=== PATIENT | female | born 1960 | race Caucasian/White ===

== ENCOUNTER 2023-10-11 23:42 | Observation (INO) | payer BC ==
[2023-10-12] MEDS ORDERED: ASPIRIN 81 MG CHEWABLE TABLET ONE (00:03)
[2023-10-12 00:22] LABS: Absolute Lymphocytes (CBC) 3.1 K/uL (0.7-4.9); Hematocrit 39.8 % (36.0-45.0); Lymphocytes % 37.4 % (15.3-44.8); MCV 88.8 fL (80-100); MPV 10.1 fL (7.6-11.3); Platelets 238 thou/uL (152-406); RBC Red Blood Cell Count 4.48 M/uL (3.86-4.86)
[2023-10-12 00:26] LABS: Protime INR 1.02
[2023-10-12 00:41] LABS: Albumin 3.9 g/dL (3.4-5.0); Bilirubin Direct 0.2 mg/dL (0-0.2); Bilirubin Indirect, Calculated 1.2 mg/dL (0.2-0.8); Bilirubin Total 1.4 mg/dL (0.2-1.0); Magnesium 2.3 mg/dL (1.6-2.4); Potassium 3.7 mEq/L (3.5-5.1); Troponin High Sensitivity 8.3 pg/mL (<58.9)
[2023-10-12] MEDS ORDERED: NA CHLORIDE 0.9% 1,000 ML ONE (00:57)
--- NOTE | 2023-10-12 02:19 | EDPHYS ---
Physician Documentation [facility] Name: Shane Velasquez Age: 63 yrs Sex: Female : 1960 Arrival Date: 10/11/2023 Time: 23:42 Bed 2 Private MD: ED Physician Kaz Morin HPI: 10/11 23:51 This 53 yrs old Female presents to ER via Unassigned with complaints of Chest Pain. sb4 23:51 patient presents with pain in the center of her mid/upper back that radiates forward to sb4 her chest. she states it began when she was sitting watching tv. her boyfriend checked her blood pressure and found it to be elevated at 170/90. she denies any medical history besides hypercholesterolemia. denies any shortness of breath, diaphoresis, nausea, vomiting, highhandedness. Historical: - Allergies: 23:54 No Known Allergies; jb4 - PMHx: 23:54 Hypercholesterolemia; jb4 - PSHx: 23:54 Tubal ligation; eye; breast augmentation; jb4 - Immunization history:: Adult Immunizations not up to date. - Social history:: Smoking status: Patient denies any tobacco usage or history of. ROS: 23:51 Constitutional: Negative for fever, chills, and weight loss, sb4 23:51 Cardiovascular: Positive for chest pain, 23:51 Back: Positive for pain at rest, radiated pain, 23:51 All other systems are negative, Exam: 23:51 Constitutional: This is a well developed, well nourished patient who is awake, alert, sb4 and in no acute distress. Head/Face: Normocephalic, atraumatic. Eyes: Extra-ocular motions intact. Periorbital areas with no swelling, redness, or edema. ENT: Mucous membranes moist. Cardiovascular: Regular rate and rhythm with a normal S1 and S2. Respiratory: Lungs have equal breath sounds bilaterally, clear to auscultation and percussion. No rales, rhonchi or wheezes noted. No increased work of breathing, no retractions or nasal flaring. Abdomen/GI: Soft, non-tender, no distension. Skin: Warm, dry with normal turgor. Normal color with no rashes, no lesions, and no evidence of cellulitis. MS/ Extremity: Pulses equal, no cyanosis. Neurovascular intact. Full, normal range of motion. Neuro: Awake and alert, GCS 15, oriented to person, place, time, and situation. Motor strength 5/5 in all extremities. Sensory grossly intact. Vital Signs: 23:51 Pulse 70; Resp 16; Pulse Ox 96% on R/A; Weight 71.67 kg (R); Height 5 ft. 5 in. ; Pain jb4 01/14; 10/12 00:30 BP 146 / 79; Pulse 62; Resp 23 S; Pulse Ox 97% on R/A; jw7 01:30 BP 148 / 67; Pulse 63; Resp 16 S; Pulse Ox 99% on R/A; jw7 02:30 BP 157 / 92; Pulse 56; Resp 17 S; Pulse Ox 99% on R/A; jw7 10/11 23:51 Body Mass Index 26.29 (71.67 kg, 165.1 cm) jb4 10/11 23:51 Pain Scale: Adult jb4 MDM: 10/11 23:45 Patient medically screened. sb4 10/12 00:06 Differential diagnosis: abnormal EKG, acute myocardial infarction, anxiety, chest wall sb4 pain, aortic dissection, aortic aneurysm. The patient was given aspirin in the Emergency Department. 02:07 ED course: IMPRESSION: Atherosclerotic calcifications in the aortic arch, thoracic and sp4 abdominal aorta without aneurysmal dilatation or evidence of dissection. No evidence for significant central pulmonary embolus. Cholelithiasis. Mild fatty infiltration of the liver. Electronically signed by: Howie Walker MD 10/12/2023 01:44 AM. 02:16 HEART Score: History: Moderately Suspicious (1), ECG: Non specific repolarization sp4 disturbance / LBTB / PM (1), Age: > 45 and < 65 years (1), Risk Factors: 1 or 2 risk factors (1), Troponin: < or = 1 x Normal Limit (0), Total Score = 4. Data reviewed: vital signs, nurses notes, lab test result(s), EKG, radiologic studies, CT scan, plain films. ED course: EXAM DESCRIPTION: Chest Single View CLINICAL HISTORY: 63 years Female, CHEST PAIN TECHNIQUE: 1 view (Single frontal view of the chest) COMPARISON: None. FINDINGS: LINES AND TUBES: None. CARDIOVASCULAR STRUCTURES: Normal heart size. No pulmonary venous congestion. LUNGS: No confluent areas of acute consolidation. Partial obscuration of the lung parenchyma due to breast soft tissues. PLEURA: No layering pleural effusions. No pneumothorax. BONES: No acute osseous abnormality of the thorax. IMPRESSION: 1. No acute cardiopulmonary disease. 2. Partial obscuration of the lung parenchyma due to breast soft tissues. 3. If warranted, follow-up two-view chest x-ray may be more helpful. . 02:19 ED course: Patient has active chest pain right now with radiation to the back, CT sp4 negative for aortic dissection, patient warrants admission for further evaluation.. 10/11 23:51 Order name: Basic Metabolic Panel; Complete Time: 00:42 sb4 10/11 23:51 Order name: CBC with Diff; Complete Time: 00:28 sb4 10/11 23:51 Order name: LFT's; Complete Time: 00:42 sb4 10/11 23:51 Order name: Magnesium; Complete Time: 00:42 sb4 10/11 23:51 Order name: NT PRO-BNP; Complete Time: 00:42 sb4 10/11 23:51 Order name: PT-INR; Complete Time: 00:28 sb4 10/11 23:51 Order name: Troponin HS; Complete Time: 00:42 sb4 10/12 02:06 Order name: Troponin High Sensitivity; Complete Time: 04:57 sp4 10/12 02:44 Order name: Urinalysis w/ reflexes EDMS 10/12 02:44 Order name: Lipid Profile EDMS 10/12 02:44 Order name: Lipid Profile EDMS 10/12 02:44 Order name: Troponin High Sensitivity EDMS 02/ 02:44 Order name: Troponin High Sensitivity EDMS / 02:44 Order name: Troponin High Sensitivity EDMS / 02:44 Order name: Troponin High Sensitivity EDMS / 02:48 Order name: Lipid Profile; Complete Time: 04:57 EDMS 10/11 23:51 Order name: XRAY Chest (1 view) sb4 10/12 00:42 Order name: CT Aorta for Dissection sb4 10/12 02:48 Order name: Echo with Doppler EDMS 10/11 23:51 Order name: EKG; Complete Time: 23:51 sb4 10/11 23:51 Order name: Cardiac monitoring; Complete Time: 00:03 sb4 10/11 23:51 Order name: EKG - Nurse/Tech; Complete Time: 00:03 sb4 10/11 23:51 Order name: IV Saline Lock; Complete Time: 23:59 sb4 10/11 23:51 Order name: Labs collected and sent; Complete Time: 23:59 sb4 10/11 23:51 Order name: O2 Per Protocol; Complete Time: 23:59 sb4 10/11 23:51 Order name: O2 Sat Monitoring; Complete Time: 23:59 sb4 EC:05 Rate is 63 beats/min. Rhythm is regular, Normal Sinus Rhythm. OR interval is normal at sb4 126 msec. QRS interval is normal at 86 msec. QT interval is normal at [address]sec[address] No Q waves. ST Segment is depressed in leads II, III, aVF, <1mm. Clinical impression: NSR w/ Non-specific ST/T Changes. Interpreted by me. Reviewed by me. Administered Medications: 00:08 Drug: Aspirin PO Chewable Tablet 324 mg PO once; 81 mg tablets x 4 Route: PO; tm6 03:51 Follow up: Response: No adverse reaction jw7 01:04 Drug: NS 0.9% IV 1000 ml IV at 1 bolus Per protocol; 1000 mL bolus Route: IV; Rate: 1 jw7 bolus; Site: right antecubital; 03:51 Follow up: Response: No adverse reaction; IV Status: Completed infusion; IV Intake: jw7 1000ml 02:45 Drug: morphine IVP or IV 4 mg IVP once over 4 mins Route: IVP; Infused Over: 4 mins; tm6 Site: right antecubital; 03:51 Follow up: Response: No adverse reaction jw7 02:45 Drug: Ondansetron IVP 4 mg IVP once; over 2 minutes Route: IVP; Site: right antecubital;tm6 03:51 Follow up: Response: No adverse reaction jw7 02:45 Drug: Zolpidem PO 5 mg PO once Route: PO; tm6 03:51 Follow up: Response: No adverse reaction jw7 03:03 Drug: Enoxaparin Sub-Q 70 mg Sub-Q once Route: Sub-Q; Site: left lower abdomen; tm6 03:51 Follow up: Response: No adverse reaction jw7 Disposition: 02:16 Co-signature as Attending Physician, Kaz Morin MD I agree with the assessment sp4 and plan of care. I reviewed the patient's care provided by Advanced Practice Provider \T\ agree w/ the diagnosis \T\ care plan. I personally saw the pt \T\ performed a substantive portion of the visit, incldng all aspects of the (History/Exam/Medical Decision Making). 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 EDMS EDMS 11: 02:29 [facility] [[email or web address]] ER HOLD pm6 ja1 11:19 02:29 ERHOLD- pm6 ja1
--- NOTE | 2023-10-12 02:19 | ER ---
Nurse's Notes [facility] Name: Shane Velasquez Age: 63 yrs Sex: Female : 1960 Arrival Date: 10/11/2023 Time: 23:42 Bed 2 Private MD: Diagnosis: Unstable angina;Atherosclerotic heart disease of [place] coronary artery with unstable angina pectoris Presentation: 10/11 23:51 Chief complaint: Patient states: I am having mid upper back pain that radiates to my jb4 mid chest. The pain is a 5/10. Coronavirus screen: At this time, the client does not indicate any symptoms associated with coronavirus-19. Ebola Screen: No symptoms or risks identified at this time. Initial Sepsis Screen: Does the patient meet any 2 criteria? No. Patient's initial sepsis screen is negative. Does the patient have a suspected source of infection? No. Patient's initial sepsis screen is negative. Risk Assessment: Do you want to hurt yourself or someone else? Patient reports no desire to harm self or others. Onset of symptoms was October 11, 2023. Transition of care: patient was not received from another setting of care. 23:51 Method Of Arrival: Wheelchair jb4 23:51 Acuity: MADI 3 jb4 Historical: - Allergies: 23:54 No Known Allergies; jb4 - PMHx: 23:54 Hypercholesterolemia; jb4 - PSHx: 23:54 Tubal ligation; eye; breast augmentation; jb4 - Immunization history:: Adult Immunizations not up to date. - Social history:: Smoking status: Patient denies any tobacco usage or history of. Screenin:58 [facility] ED Fall Risk Assessment (Adult) History of falling in the last 3 months, jw7 including since admission No falls in past 3 months (0 pts) Score/Fall Risk Level 0 - 2 = Low Risk Oriented to surroundings, Maintained a safe environment, Educated pt \T\ family on fall prevention, incl call for assistance when getting out of bed. Abuse screen: Denies threats or abuse. Denies injuries from another. Nutritional screening: No deficits noted. Tuberculosis screening: No symptoms or risk factors identified. Assessment: 10/12 00:00 General: Appears in no apparent distress. comfortable, Behavior is calm, cooperative. jw7 Pain: Complains of pain in back Pain radiates to chest Pain currently is 5 out of 10 on a pain scale. Quality of pain is described as aching, dull, throbbing, Pain began suddenly, Is continuous. Neuro: Epstein Agitation-Sedation Scale (RASS): 0 - Alert and Calm Level of Consciousness is awake, alert, obeys commands, Oriented to person, place, time, situation. Cardiovascular: Heart tones S1 S2 present Capillary refill < 3 seconds Clubbing of nail beds is absent JVD is absent Patient's skin is warm and dry. Respiratory: Airway is patent Trachea midline Respiratory effort is even, unlabored, Respiratory pattern is regular, symmetrical. GI: Abdomen is flat, non-distended. : No deficits noted. No signs and/or symptoms were reported regarding the genitourinary system. EENT: No deficits noted. No signs and/or symptoms were reported regarding the EENT system. Derm: Skin is intact, is healthy with good turgor, Skin is dry, Skin is normal, Skin temperature is warm. Musculoskeletal: Circulation, motion, and sensation intact. Range of motion: intact in all extremities. 01:00 Reassessment: Patient appears in no apparent distress at this time. No changes from 7 previously documented assessment. Patient and/or family updated on plan of care and expected duration. Pain level reassessed. Patient is alert, oriented x 3, equal unlabored respirations, skin warm/dry/pink. 01:57 Reassessment: Patient appears in no apparent distress at this time. No changes from 7 previously documented assessment. Patient and/or family updated on plan of care and expected duration. Pain level reassessed. Patient is alert, oriented x 3, equal unlabored respirations, skin warm/dry/pink. 03:00 Reassessment: Patient appears in no apparent distress at this time. Patient and/or jw7 family updated on plan of care and expected duration. Pain level reassessed. Patient is alert, oriented x 3, equal unlabored respirations, skin warm/dry/pink. 03:00 General: Pt admitted to ER HOLD, See [facility] documentation . jw7 Vital Signs: 10/11 23:51 Pulse 70; Resp 16; Pulse Ox 96% on R/A; Weight 71.67 kg (R); Height 5 ft. 5 in. ; Pain jb4 01/14; 10/12 00:30 BP 146 / 79; Pulse 62; Resp 23 S; Pulse Ox 97% on R/A; jw7 01:30 BP 148 / 67; Pulse 63; Resp 16 S; Pulse Ox 99% on R/A; jw7 02:30 BP 157 / 92; Pulse 56; Resp 17 S; Pulse Ox 99% on R/A; jw7 10/11 23:51 Body Mass Index 26.29 (71.67 kg, 165.1 cm) jb4 10/11 23:51 Pain Scale: Adult jb4 ED Course: 10/11 23:45 Patient arrived in ED. sb4 23:45 Julianne Breaux PA-C is PHCP. sb4 23:45 Kaz Morin MD is Attending Physician. sb4 23:54 Triage completed. jb4 23:54 Arm band placed on right wrist. jb4 23:55 Inserted saline lock: 20 gauge in right antecubital area, using aseptic technique. ty Blood collected. 23:58 Patient has correct armband on for positive identification. Bed in low position. Call jw7 light in reach. Client placed on continuous cardiac and pulse oximetry monitoring. NIBP monitoring applied. 23:58 Patient maintains SpO2 saturation greater than 95% on room air. jw7 10/12 00:08 XRAY Chest (1 view) In Process Unspecified. EDMS 01:22 CT Aorta for Dissection In Process Unspecified. EDMS 02:18 Paddy Ta MD is Hospitalizing Provider. sp4 03:49 No provider procedures requiring assistance completed. Patient admitted, IV remains in jw7 place. 03:50 Provided Education on: need for admit. jw7 Administered Medications: 00:08 Drug: Aspirin PO Chewable Tablet 324 mg PO once; 81 mg tablets x 4 Route: PO; tm6 03:51 Follow up: Response: No adverse reaction jw7 01:04 Drug: NS 0.9% IV 1000 ml IV at 1 bolus Per protocol; 1000 mL bolus Route: IV; Rate: 1 jw7 bolus; Site: right antecubital; 03:51 Follow up: Response: No adverse reaction; IV Status: Completed infusion; IV Intake: jw7 1000ml 02:45 Drug: morphine IVP or IV 4 mg IVP once over 4 mins Route: IVP; Infused Over: 4 mins; tm6 Site: right antecubital; 03:51 Follow up: Response: No adverse reaction jw7 02:45 Drug: Ondansetron IVP 4 mg IVP once; over 2 minutes Route: IVP; Site: right antecubital;tm6 03:51 Follow up: Response: No adverse reaction jw7 02:45 Drug: Zolpidem PO 5 mg PO once Route: PO; tm6 03:51 Follow up: Response: No adverse reaction jw7 03:03 Drug: Enoxaparin Sub-Q 70 mg Sub-Q once Route: Sub-Q; Site: left lower abdomen; tm6 03:51 Follow up: Response: No adverse reaction jw7 Medication: 03:50 VIS not applicable for this client. jw7 Intake: 03:51 IV: 1000ml; Total: 1000ml. jw7 Outcome: 02:18 Decision to Hospitalize by Provider. sp4 03:49 Admitted to ER Hold. Please see [facility] for further documentation. jw7 03:49 Condition: stable 03:49 Instructed on the need for admit, Demonstrated understanding of instructions, 11:45 Patient left the ED. ap3 Signatures: Dispatcher [employer] EDMS Jasen Mcmahon RN RN jb4 Prokisch, Amanda, RN RN ap3 Marisabel Hayes RN RN jw7 Julianne Breaux, PAPro PAKaz Almonte MD MD sp4 Gerard Blackburn RN RN tm6 James Page Corrections: (The following items were deleted from the chart) 10/11 23:55 23:54 PMHx: None; 4 10/12 00:10/11 23:50 General: Appears in no apparent distress. comfortable, Behavior is calm, jw7 cooperative, 7 10/12 00:10/11 23:50 Pain: Complains of pain in back Pain radiates to chest Pain currently is 7 jw7 out of 10 on a pain scale. Quality of pain is described as aching, dull, throbbing, Pain began suddenly, Is continuous, jw7 10/12 99:10/11 23:50 Neuro: Epstein Agitation-Sedation Scale (RASS): 0 - Alert and Calm Level 7 of Consciousness is awake, alert, obeys commands, Oriented to person, place, time, situation, 7 10/12 99:10/11 23:50 Cardiovascular: Heart tones S1 S2 present Capillary refill < 3 seconds jw7 Clubbing of nail beds is absent JVD is absent Patient's skin is warm and dry. 7 10/12 99:10/11 23:50 Respiratory: Airway is patent Trachea midline Respiratory effort is even, jw7 unlabored, Respiratory pattern is regular, symmetrical, 7 10/12 99:10/11 23:50 GI: Abdomen is flat, non-distended, jw7 7 10/12 99:10/11 23:50 : No deficits noted. No signs and/or symptoms were reported regarding the jw7 genitourinary system. 7 10/12 99:10/11 23:50 EENT: No deficits noted. No signs and/or symptoms were reported regarding jw7 the EENT system. 10/12:10/11 23:50 Derm: Skin is intact, is healthy with good turgor, Skin is dry, Skin is jw7 normal, Skin temperature is warm 7 10/12 99:10/11 23:50 Musculoskeletal: Circulation, motion, and sensation intact. Range of jw7 motion: intact in all extremities, jw7 10/12 06:32 00:00 Pain: Complains of pain in back Pain radiates to chest Pain currently is 7 out of jw7 10 on a pain scale. Quality of pain is described as aching, dull, throbbing, Pain began suddenly, Is continuous, jw7
[2023-10-12] MEDS ORDERED: ONDANSETRON 4 MG/2 ML VIAL ONE (02:26)
[2023-10-12] MEDS ORDERED: MORPHINE 4 MG/ML SYR ONE (02:27)
[2023-10-12] MEDS ORDERED: ZOLPIDEM TARTRATE 5 MG TABLET ONE (02:27)
[2023-10-12] MEDS ORDERED: ENOXAPARIN 80 MG/0.8 ML SQ ONE (02:27)
[2023-10-12] MEDS ORDERED: ONDANSETRON 4 MG/2 ML VIAL IV PRN (02:39)
[2023-10-12] MEDS ORDERED: ACETAMINOPHEN 325 MG TABLET PO PRN (02:39)
--- NOTE | 2023-10-12 02:39 | P.HP ---
Certification for Inpatient Patient admitted to: Observation With expected LOS: <2 Midnights Practitioner: I am a practitioner with admitting privileges, knowledge of patient current condition, hospital course, and medical plan of care. Services: Services provided to patient in accordance with Admission requirements found in Title 42 Section 412.3 of the Code of Federal Regulations Patient History Date of Service: 10/12/23 Reason for admission: Chest paiN. History of Present Illness: 63-year-old female patient with no significant medical history except for hyperlipidemia who was evaluated in the emergency room for episode of chest pain. Pain is located in the mid chest region with radiation to the back between the shoulder blades. No headache, fever, chills, dizzy spells. No nausea, no vomiting. She does have occasions of palpitation but she has never been worked up for chest pain related issue. She reported a strong family history of heart attack and multiple numbers of her family which include her brother and her father. Both of them had massive cardiac attacks in their 60s. Initial troponin was significantly nonrevealing. She was admitted for inpatient care. CTA of the chest to rule out dissection was pending full report at the time of dictation. Allergies No Known Allergies Allergy (Unverified 10/12/23 04:00) Review of Systems General: Unremarkable Eyes: Unremarkable ENT: Unremarkable Respiratory: Unremarkable Cardiovascular: Chest Pain Gastrointestinal: Unremarkable Genitourinary: Unremarkable Musculoskeletal: Unremarkable Integumentary: Unremarkable Neurological: Unremarkable Lymphatics: Unremarkable Physical Examination - Physical Exam General: Alert, Oriented x3 HEENT: Atraumatic Neck: Supple Respiratory: Normal air movement Cardiovascular: Normal pulses, Regular rate/rhythm, Normal S1 S2 Gastrointestinal: Soft and benign Musculoskeletal: No swelling Neurological: Normal speech, Normal strength at 5/5 x4 extr - Studies Laboratory Data (last 24 hrs) 10/11/23 10/11/23 10/11/23 23:59 23:59 23:59 WBC 8.40 Hgb 13.7 Hct 39.8 Plt Count 238 PT 11.2 INR 1.02 Sodium 138 Potassium 3.7 BUN 18 Creatinine 1.21 H Glucose 120 H Magnesium 2.3 Total Bilirubin 1.4 H AST 11 L ALT 30 Alkaline Phosphatase 93 Assessment and Plan - Plan Chest pain: She has persistent pain and there is concern for unstable angina. Troponin trend has been nonrevealing. Continue statin therapy, aspirin and put on telemetry. Will obtain lipid panel to assess adequacy of therapy. Will follow trend of troponin. Will obtain echocardiogram to assess cardiac function. Cardiology consulted for management recommendation. Hyperlipidemia: Continue statin therapy. Prophylaxis: Lovenox for DVT prophylaxis. CODE STATUS: Full code. Disposition: We will treat and workup her chest pain and discharge her when she is deemed clinically stable. - Advance Directives Does patient have a Living Will: No Does patient have a Durable POA for Healthcare: No
[2023-10-12] MEDS ORDERED: MORPHINE 2 MG/ML SYR IV PRN (02:43)
[2023-10-12 03:41] VITALS: BMI 26.2
[2023-10-12 03:53] LABS: Troponin High Sensitivity 6.2 pg/mL (<58.9)
[2023-10-12 08:23] LABS: Specific Gravity > 1.030 (1.005-1.030); Urine Bilirubin NEGATIVE (Negative); Urine Blood Negative (Negative); Urine Clarity Clear (Clear); Urine Color Colorless (Yellow); Urine Glucose NEGATIVE (Negative); Urine Protein NEGATIVE (Negative); Urine Urobilinogen Normal (Normal)
[2023-10-12] MEDS ORDERED: INFLUENZA VACCINE (for 6+ mo) 0.5 ML DOSE IMVAC ONE (09:00)
[2023-10-12] MEDS: ENOXAPARIN 40 MG/0.4 ML SQ SCH (09:00)
[2023-10-12] MEDS: ASPIRIN 81 MG CHEWABLE TABLET PO SCH (09:00)
--- NOTE | 2023-10-12 12:39 | RAD REPORT ---
EXAM DESCRIPTION: CT - Angio Aorta For Dissection - 10/12/2023 7:01 am CLINICAL HISTORY: 63 years, Female, DISSECTION COMPARISON: None TECHNIQUE: Multiple transaxial tomograms of the abdominal aorta were performed utilizing 3 mm slice thickness at 3 mm interval reconstruction from the lung bases to the ischial tuberosities, before and after the administration of large bolus of IV contrast for complete opacification of the abdominal a joshua and iliac arteries. 2-D and 3-D multiplanar reformats, volume rendering technique and maximum intensity projection images were generated and reviewed. An individualized dose optimization technique, Automated Exposure Control, was utilized for the perfo rmed procedure. FINDINGS: Thoracic aorta/great vessels: Atherosclerotic calcifications in the aortic arch without aneurysmal dilatation or evidence of diss ection. There is a normal branching pattern of the great vessels. No evidence for significant stenosi s and/or occlusion within the proximal aspect. Aorta/iliac arteries: Atherosclerotic calcifications in the abdominal aorta without aneurysmal dilatation or evidence of di ssection. Atherosclerotic calcifications in bilateral common iliac arteries without significant steno sis and/or occlusion. The celiac trunk, superior mesenteric and inferior mesenteric artery demonstrate to be patent with no evidence for significant stenosis and/or occlusion. There are single bilateral renal arteries with no significant abnormalities. Chest: Lower neck/chest wall: Visualized thyroid gland and soft tissues are normal. No adenopathy. Lungs and airways: The lung parenchyma demonstrate bilateral apical pleural thickening. No evidence o f airspace or interstitial process. No significant pulmonary nodules and/or masses identified. No foc al areas of consolidation. Airways: The trachea mainstem bronchus demonstrate to be unremarkable. Pleural: There are no pleural effusion. No evidence for pneumothorax. Hemidiaphragms are normally pos itioned. Mediastinum and lymph nodes: No significant mediastinal and/or hilar lymphadenopathy. The axillary re gions demonstrate to be clear. Heart: Normal heart size. No pericardial effusion. No coronary arteries calcifications. Pulmonary arteries: The central pulmonary arteries demonstrate to be within normal limits. No evidenc e for significant central filling defect to suggest pulmonary embolus. Osseous structures and chest wall: The thoracic spine demonstrate to be within normal limits. No evid ence for compression deformities and/or significant skeletal lesions. Bilateral prepectoral breast im plants Abdomen and pelvis: Liver: The liver demonstrated presence of decreased attenuation corresponding to mild fatty infiltrat ion. Gallbladder: The gallbladder demonstrates presence of radiolucent density structures corresponding to cholesterol gallbladder calculi-cholelithiasis. No significant inflammatory changes and/or biliary d uct dilatation. Adrenal glands: The adrenal glands demonstrate to be normal. Pancreas: The pancreas demonstrate to be normal. Spleen: The spleen demonstrate to be within normal limits. Kidneys: The kidneys demonstrate normal uptake of contrast media. There is no evidence for nephroli thiasis and/or hydronephrosis. GI: Grossly the unopacified stomach, small bowel and large bowel demonstrate to be within normal limi ts. No evidence for bowel dilatation and/or free air. The appendix was not visualized. The left-sided colon demonstrate to be decompressed with no gross abnormalities. : The urinary bladder demonstrate to be suboptimal in distention. Genitalia: The uterus demonstrate to be within normal limits. There are normal adnexal structures. Retroperitoneum: There is no retroperitoneal lymphadenopathy. There is no evidence for ascites and/or abnormal fluid collections. Bones: The bony structures demonstrate to be within normal limits. Soft tissues: The rest of the soft tissue and bony structures are within normal limits. IMPRESSION: Atherosclerotic calcifications in the aortic arch, thoracic and abdominal aorta without aneurysmal dilatation or evidence of dissection. No evidence for significant central pulmonary embolus. Cholelithiasis. Mild fatty infiltration of the liver. Electronically signed by: Howie Walker MD 10/12/2023 01:44 AM MANAGER FINANCIAL Due to temporary technical issues with the PACS/Fluency reporting system, reports are being signed by the in house radiologist without review as a courtesy to ensure prompt reporting. The interpreting r adiologist is fully responsible for the content of the report.
--- NOTE | 2023-10-12 12:57 | RAD REPORT ---
EXAM DESCRIPTION: RAD - Chest Single View - 10/12/2023 12:07 am CLINICAL HISTORY: 63 years Female, CHEST PAIN TECHNIQUE: 1 view (Single frontal view of the chest) COMPARISON: None. FINDINGS: LINES AND TUBES: None. CARDIOVASCULAR STRUCTURES: Normal heart size. No pulmonary venous congestion. LUNGS: No confluent areas of acute consolidation. Partial obscuration of the lung parenchyma due to breast soft tissues. PLEURA: No layering pleural effusions. No pneumothorax. BONES: No acute osseous abnormality of the thorax. IMPRESSION: 1. No acute cardiopulmonary disease. 2. Partial obscuration of the lung parenchyma due to breast soft tissues. 3. If warranted, follow-up two-view chest x-ray may be more helpful. Electronically signed by: Ruben Bowman MD 10/12/2023 12:16 AM DISTRIBUTION ANALYST Due to temporary technical issues with the PACS/Fluency reporting system, reports are being signed by the in house radiologist without review as a courtesy to ensure prompt reporting. The interpreting r adiologist is fully responsible for the content of the report.
[2023-10-12] MEDS ORDERED: HEPA 1000U/500MLS 2,000 UNIT/1,000 ML BAG IV ONE (14:08)
[2023-10-12] MEDS ORDERED: LIDOCAINE 1% 20 ML MDV ONE (14:08)
[2023-10-12] MEDS ORDERED: HEPARIN 5000 UNIT/ML 1 ML VIAL ONE (14:09)
[2023-10-12] MEDS ORDERED: MIDAZOLAM HCL 2 MG/2 ML INJ ONE (14:09)
[2023-10-12] MEDS ORDERED: HEPARIN 10,000 UNIT/10 ML VIAL IV ONE (14:09)
[2023-10-12] MEDS ORDERED: VERAPAMIL HCL 10 MG/4 ML VIAL IV ONE (14:09)
[2023-10-12] MEDS ORDERED: FENTANYL CITR 100 MCG/2 ML ONE (14:09)
[2023-10-12] MEDS ORDERED: NA CHLORIDE 0.9% 500 ML ONE (14:09)
[2023-10-12] MEDS ORDERED: ATROPINE SULF 1 MG/10 ML SYR IV ONE (14:09)
--- NOTE | 2023-10-12 14:58 | EKG ---
Test Date: 2023-10-11 Test Time: 23:58:52 Grooving Machine Operator: BF MEASUREMENT RESULTS: Intervals: Rate: 63 MN: 126 QRSD: 86 QT: 406 QTc: 415 [place]: P: 30 MN: 126 QRS: 68 T: -84 INTERPRETIVE STATEMENTS: Normal sinus rhythm ST & T wave abnormality, consider inferolateral ischemia Abnormal ECG No previous ECG available for comparison Electronically Signed On 10-12-23 14:56:59 RETAIL SALES ADVISOR by Kendall Stearns
--- NOTE | 2023-10-12 17:11 | P.DS ---
Admission Date: 10/12/23 Discharge Date: 10/12/23 Disposition: ROUTINE DISCHARGE Discharge Condition: FAIR Reason for Admission: Chest pain. - Problems (1) Chest pain Current Visit: Yes Status: Acute (2) Hyperlipidemia Current Visit: Yes Status: Acute Brief History of Present Illness: 63-year-old female patient with history of hyperlipidemia who was evaluated in the emergency room for episode of chest pain. She reported occasional palpitation. She reported she had a stress test done several years ago which patient reported as unremarkable. She denied any headache, fever, chills, dizzy spells, nausea, no vomiting. She reported a strong family history of heart attack and multiple numbers of her family which include her brother and her father. Both of them had massive cardiac attacks in their 60s. Initial troponin was negative. CTA chest was negative for arterial dissection or pulmonary embolism. She was hospitalized for ACS rule out. Hospital Course: Patient was placed on observation on the medical floor. Troponin trended negative. She was seen and evaluated by cardiology Dr. Stearns who performed cardiac catheterization. Patient's LDL was moderately elevated. Noted she takes Crestor 5 mg daily at home. Crestor dose has been increased to 10 mg daily for target LDL of less than 70. Vital Signs/Physical Exam: Temp Pulse Resp BP Pulse Ox 97.4 F 71 17 115/51 L 95 10/12/23 12:00 10/12/23 12:00 10/12/23 12:00 10/12/23 12:00 10/12/23 12:00 General: Alert, In no apparent distress, Oriented x3 HEENT: Mucous membr. moist/pink Neck: JVD not distended Respiratory: Clear to auscultation bilaterally, Normal air movement Cardiovascular: No edema, Regular rate/rhythm, Normal S1 S2, No murmurs Gastrointestinal: Normal bowel sounds, Soft and benign, Non-distended, No tenderness Musculoskeletal: No swelling, No tenderness Integumentary: No rashes, No cyanosis Neurological: Normal speech, Normal strength at 5/5 x4 extr Lymphatics: No axilla or inguinal lymphadenopathy Laboratory Data at Discharge: WBC 8.40 thou/uL (4.3-10.9) 10/11/23 23:59 Hgb 13.7 g/dL (12.0-15.0) 10/11/23 23:59 Hct 39.8 % (36.0-45.0) 10/11/23 23:59 Plt Count 238 thou/uL (152-406) 10/11/23 23:59 PT 11.2 SECONDS (9.5-12.5) 10/11/23 23:59 INR 1.02 10/11/23 23:59 Sodium 138 mEq/L (136-145) 10/11/23 23:59 Potassium 3.7 mEq/L (3.5-5.1) 10/11/23 23:59 BUN 18 mg/dL (7-18) 10/11/23 23:59 Creatinine 1.21 mg/dL (0.55-1.02) H 10/11/23 23:59 Glucose 120 mg/dL (74-106) H 10/11/23 23:59 Magnesium 2.3 mg/dL (1.6-2.4) 10/11/23 23:59 Total Bilirubin 1.4 mg/dL (0.2-1.0) H 10/11/23 23:59 AST 11 U/L (15-37) L 10/11/23 23:59 ALT 30 U/L (13-56) 10/11/23 23:59 Alkaline Phosphatase 93 U/L (45-117) 10/11/23 23:59 Triglycerides Cancelled 10/12/23 05:00 Cholesterol Cancelled 10/12/23 05:00 HDL Cholesterol Cancelled 10/12/23 05:00 Cholesterol/HDL Ratio Cancelled 10/12/23 05:00 Home Medications: Aspirin Chewable [Aspirin Chewable*] 81 mg PO DAILY #30 tab.chew 10/12/23 Rosuvastatin [Crestor*] 2 tab PO BEDTIME #60 tab 10/12/23 New Medications: Aspirin Chewable [Aspirin Chewable*] 81 mg PO DAILY #30 tab.chew Rosuvastatin [Crestor*] 2 tab PO BEDTIME #60 tab Diet: AHA Activity: Ad claudia Followup: LUIS SMITH [Primary Care Provider] -
[2023-10-12 17:24] VITALS: O2SAT 96
[2023-10-12 21:05] VITALS: BP 132/64; TEMP 97
--- NOTE | 2023-10-13 00:29 | CON ---
Date of Consultation: 10/12/2023 Reason For Consultation: Chest pain. History Of Present Illness: This is a 63-year-old female with significant medical history of dyslipi demia, very strong family history of coronary artery disease. Father had his major heart attack at a ge of 60, as well as uncle and a brother as well. Comes in with chest pain, pressure-like and radiat es to the back, neck and upper extremities, lasted for about 30-45 minutes and then went away, and terry ppened multiple times, which grabbed her attention and presented to the emergency room. In the ER, c ardiac enzymes are negative and the patient is very concerned due to significant family history of se lewis premature coronary artery disease. Past Medical History: Dyslipidemia. Medications: Refer to reconciliation sheet for detailed list. Allergies: NO KNOWN DRUG ALLERGIES. Family History: There is history of premature coronary artery disease on the father's side and broth er as well. Social History: She does not smoke or drink. Does not use any drugs. Review of Systems: All systems were reviewed and were negative except what is mentioned in the HPI, which is chest pain. Physical Examination: Vital Signs: Reviewed. Head and Neck: Pupils are equal, reactive to light. Intact eye movements. No JVD. No cervical lym phadenopathy. Neck: Supple. Thyroid is not enlarged. Lungs: Clear to auscultation bilaterally. No rhonchi, rales, or crackles. No accessory muscle use. Heart: Regular rate and rhythm. No extra sounds. Abdomen: Soft, nontender. Bowel sounds positive. No organomegaly. No masses or hernia. No rigidi ty or rebound. Extremities: No edema, clubbing, cyanosis. Intact pulses. Skin: No rash or nodule. Neurologic: Alert, awake, oriented x3. No acute focal deficits appreciated. Lymph nodes: No cervical or axillary lymphadenopathy. Investigations: BUN 18, creatinine 1.2, and hemoglobin 16.7. Assessment/recommendation: 1.Chest pain, based on family history of coronary artery disease, new onset, it is concerning for un stable angina, especially with the history of dyslipidemia and significant premature family history o f coronary artery disease. I recommend coronary angiogram. We will plan on it this afternoon, to dinorah knight n.p.o. for now. 2.Dyslipidemia. LDL is borderline elevated. I would recommend to start her on Crestor 1 0 mg q.h.s. given the significant family history that she has. DILIP Voice ID: [id number] Report ID: [id number]
--- NOTE | 2023-10-13 00:42 | OP ---
Date of Procedure: 10/12/2023 Surgeon: TAZ NOLEN Procedures Performed: 1.Selective coronary angiogram. 2.Left heart catheterization. Indication: Unstable angina. Access: 1.Right radial artery 6-Zimbabwean closed with TR band. 2.Right femoral artery 6-Zimbabwean closed with 6-Zimbabwean Angio-Seal. Complications: None. Bleeding: Less than 20 mL. Anesthesia: Total sedation time was 30 minutes. Used fentanyl, Versed. Description Of Procedure: After risks, benefits, alternatives were explained, patient agreed to proc eed and signed informed consent. The patient was brought into cardiac catheterization laboratory, pr epped and draped in sterile fashion and then accessed right femoral artery using micropuncture kit, u ltrasound guidance, fluoroscopy. Initially, I accessed right radial artery using pediatric micropunc ture kit and placed 6-Zimbabwean slender sheath and could not get the wire due to severe spasm of the rad ial artery, so switched to the groin. Using micropuncture kit, ultrasound guidance, and fluoroscopy, I accessed right femoral artery, placed a 6-Zimbabwean Mondovi sheath and took 6-Zimbabwean JL4 catheter ov er J-wire into the aortic root, engaged left main and took standard views and then exchanged for a 6- [place]an JR4 catheter and across the aortic valve over the wire, measured the LVEDP. Pullback did not record any gradient. Then engaged the RCA, took standard views and then removed the catheter and the n the sheath and 6-Zimbabwean Angio-Seal was used for closure of the groin with good hemostasis and the r adial sheath was removed and TR band was placed with good hemostasis. Findings: 1.Left main is normal. 2.LAD; proximal 30%, mid 50% focal. Diagonal branches appear normal. The LAD distally tapers to be come very small. 3.Left circumflex; moderate size with luminal irregularities. 4.RCA; large and dominant mid 30%, rest of it is normal. 5.Elevated LVEDP between 15 and 20 mmHg. Conclusion: 1.Moderate coronary artery disease. 2.Elevated LVEDP. Recommendation: Cardiac risk factor modification. Baby aspirin 81 mg daily. High dose, high potenc y statin like atorvastatin 40 mg or rosuvastatin 20 mg q.h.s. Plan: Close followup as an outpatient. Probably, I will do a stress test on her in 1 year and also she will benefit from low-dose diuretics. She is symptomatic. The patient can be released and follo w up with me in the office in 1 week post discharge. SR/MODL Voice ID: [id number] Report ID: [id number]
--- NOTE | 2023-10-13 07:08 | ECHO ---
HEIGHT: 5 ft 5 in WEIGHT: 158 lb 0 oz DATE OF STUDY: 10/12/[address]: Paddy Ta MD 2-DIMENSIONAL: YES M.MODE: YES DOPPLER: YES COLOR FLOW: YES TDS: YES PORTABLE: YES DEFINITY: BUBBLE STUDY: DIAGNOSIS: CHEST PAIN CARDIAC HISTORY: CATHERIZATION: SURGERY: PROSTHETIC VALVE: PACEMAKER: MEASUREMENTS (cm) DIASTOLIC (NORMALS) SYSTOLIC (NORMALS) IVSd 0.9 (0.6-1.2) LA Diam 3.1 (1.9-4.0) LVEF 72% LVIDd 4.4 (3.5-5.7) LVIDs 2.6 (2.0-3.5) %FS 41% LVPWd 1.0 (0.6-1.2) Ao Diam 2.7 (2.0-3.7) 2 DIMENSIONAL ASSESSMENT: RIGHT ATRIUM: NORMAL LEFT ATRIUM: NORMAL RIGHT VENTRICLE: NORMAL LEFT VENTRICLE: NORMAL TRICUSPID VALVE: MILD TRICUSPID REGURGITATION MITRAL VALVE: NORMAL PULMONIC VALVE: NORMAL AORTIC VALVE: NORMAL PERICARDIAL EFFUSION: NONE AORTIC ROOT: NORMAL LEFT VENTRICULAR WALL MOTION: NORMAL DOPPLER/COLOR FLOW: SEE BELOW COMMENTS: 1. NORMAL LEFT VENTRICULAR EJECTION FRACTION 60-65% 2. NORMAL WALL MOTION 3. MILD TRICUSPID REGURGITATION TECHNOLOGIST: TONYA BROWN
== END 2023-10-12 19:50 | disposition home or self-care (01) ==
LOC: ER 23:42 → EDBD 23:42 → ERHOLD 10-12 02:39 → 4TH 10-12 11:35
PROVIDERS: ADMIT Internal Medicine Nephrology; ATTEND Internal Medicine
PROC: 4A023N7 Measurement of Cardiac Sampling and Pressure, Left Heart, Percutaneous Approach (ICD-10-PCS; principal; 2023-10-12)
PROC: B2111ZZ Fluoroscopy of Multiple Coronary Arteries using Low Osmolar Contrast (ICD-10-PCS; 2023-10-12)
DX: I25.110 Atherosclerotic heart disease of native coronary artery with unstable angina pectoris (principal); E78.5 Hyperlipidemia, unspecified; Z82.49 Family history of ischemic heart disease and other diseases of the circulatory system
CPT/HCPCS: 93005; 93306; 85025; 80048; 36415; 83735; 85610; 80061; 80076; 81003; 84484 ×4; 83880; 71275; 74175; 71045; 93458; 76937; Q9967; C1893; Q9966 ×2; C1760; J1644; J2001; J2250; J3010; J2405; G0378 ×4; J7040; J7030; C1769; 99152; 99153; J0461

== ENCOUNTER 2023-11-10 06:43 | Day surgery (SDC) | payer BC ==
[2023-11-05 13:27] LABS: Absolute Basophils 0.1 K/uL (0-0.5); Absolute Eosinophils 0.1 K/uL (0-0.5); Basophils % 0.7 % (0-1.3); Eosinophils % 1.7 % (0-4.4); Hematocrit 37.6 % (36.0-45.0); Hemoglobin 12.7 g/dL (12.0-15.0); Lymphocytes % 25.1 % (15.3-44.8); MCV 89.3 fL (80-100); Platelets 198 thou/uL (152-406); RBC Red Blood Cell Count 4.21 M/uL (3.86-4.86)
[2023-11-05 13:37] LABS: Protime INR 1.04
--- NOTE | 2023-11-09 16:06 | EKG ---
Test Date: 2023-11-05 Test Time: 14:09:43 Pasteurizing Machine Operator: EVAN MEASUREMENT RESULTS: Intervals: Rate: 64 NM: 128 QRSD: 88 QT: 338 QTc: 348 [place]: P: 53 NM: 128 QRS: 42 T: 211 INTERPRETIVE STATEMENTS: Normal sinus rhythm Possible Left atrial enlargement Nonspecific ST and T wave abnormality Abnormal ECG Compared to ECG 10/11/2023 23:58:52 Possible ischemia no longer present ST (T wave) deviation still present Electronically Signed On 11-09-23 16:04:41 VENDING MACHINE REFILLER by Kendall Stearns
[2023-11-10] MEDS ORDERED: NA CHLORIDE 0.9% 500 ML ONE (06:45)
[2023-11-10] MEDS ORDERED: FENTANYL CITR 100 MCG/2 ML ONE (06:58)
[2023-11-10] MEDS ORDERED: MIDAZOLAM HCL 2 MG/2 ML INJ ONE (06:58)
[2023-11-10] MEDS ORDERED: LIDOCAINE 1% 20 ML MDV ONE (06:58)
[2023-11-10] MEDS ORDERED: HEPA 1000U/500MLS 2,000 UNIT/1,000 ML BAG IV ONE (06:59)
[2023-11-10 10:25] VITALS: O2SAT 98
[2023-11-10 10:50] VITALS: BP 137/76
== END 2023-11-10 10:35 | disposition home or self-care (01) ==
LOC: CCL 06:43
PROVIDERS: ATTEND Internal Medicine
DX: I65.23 Occlusion and stenosis of bilateral carotid arteries (principal); I25.10 Atherosclerotic heart disease of native coronary artery without angina pectoris; E78.5 Hyperlipidemia, unspecified; R03.0 Elevated blood-pressure reading, without diagnosis of hypertension; Z87.891 Personal history of nicotine dependence; Z79.899 Other long term (current) drug therapy
CPT/HCPCS: 93005; 85025; 80048; 36415; 83721; 85610; 85730; 36222; 76937; C1893; J2001; J2250; J3010; J7040; 99152; 99153

== ENCOUNTER 2023-12-03 04:22 | Emergency (ER) | payer BC ==
--- OUTSIDE RECORDS SUMMARY | 2023-12-03 04:25 | XMS REPORT | Continuity of Care Document ---
Author Name Unknown Address [address] [facility] [address] [place] [address] [facility] thconnect Address [address] [facility] [address] [place] [address] Care Team Providers Care Investment Strategist Name Role Phone Jeannie Burnette Attending Clinician Jeannie Barraza Admitting Clinician Herminia e Payers Payer Name Policy Type Policy Number Effective Date Expirati on Date Source Allergies, Adverse Reactions, Alerts Allergy Name Allergy Type Status Severity Reaction(s) Onset Date Inactive Date Treating Clinician Comments Source No Known Allergie s DA Active U 11-26 00:00: 00 [facility] Encounters Start Date/Time End Date/Time Encounter Type Admission Type Attending Clinicians Care Facility Care Department Encounter ID Source 2023-12-01 06:30:00 2023-12-02 09:13:00 Inpatient Jeanine YangCL INTE [id number] 30 [facility] Results Test Description Test Time Test Comments Results Result Co mments Source [id number] 05:33:00* Test Item Value Reference Range Interpretation Comme nts PHOSPHOROUS (test code = PHOS) 3.2 MG/DL 2.5-4.9 N [id number] 05:33:00* Test Item Value Reference Range Interpretation Comme nts MAGNESIUM (test code = MAG) 2.22 mg/dL 1.6-2.6 N CALCIUM [id number] 05:33:00* Test Item Value Reference Range Interpretation Comme nts CALCIUM IONIZED (test code = SAI) 1.22 MMOL/L 1.09-1.30 N CBC W/AUTO [id number] 05:06:00* Test Item Value Reference Range Interpretation Comme nts WHITE BLOOD CELL (test code = WBC) 11.4 x10 3/uL 4.5-11.0 H RED BLOOD CELL (test code = RBC) 3.84 x10 6/uL 3.54-5.02 N HEMOGLOBIN (test code = HGB) 11.6 g/dL 11.0-15.0 N HEMATOCRIT (test code = HCT) 35.2 % 33.0-45.0 N MEAN CELL VOLUME (test code = MCV) 91.7 fL 81.0-99.0 N MEAN CELL HGB (test code = MCH) 30.2 pg 27.0-33.0 N MEAN CELL HGB CONCETRATION (test code = MCHC) 33.0 g/dL 33.0-37.0 N RED CELL DISTRIBUTION WIDTH CV (test code = RDW) 12.7 % 11.5-14.5 N RED CELL DISTRIBUTION WIDTH SD (test code = RDW-SD) 42.2 fL 37.0-54.0 N PLATELET COUNT (test code = PLT) 227 x10 3/uL 150-400 N MEAN PLATELET VOLUME (test c ode = MPV) 12.4 fL 7.0-9.0 H NEUTROPHIL % (test code = NT%) 76.2 % 56.0-77.0 N IMMATURE GRANULOCYTE % (test code = IG%) 0.3 % 0.0-2.0 N LYMPHOCYTE % (test code = LY%) 15.6 % 14.0-32.0 N MONOCYTE % (test code = MO%) 7.7 % 4.8-9.0 N EOSINOPHIL % (test code = EO%) 0.0 % 0.3-3.7 L BASOPHIL % (test code = BA%) 0.2 % 0.0-2.0 N NUCLEATED RBC % (test code = NRBC%) 0.0 % 0-0 N NEUTROPHIL # (test code = NT#) 8.72 x10 3/uL 2.0-7.6 H IMMATURE GRANULOCYTE # (test code = IG#) 0.04 x10 3/uL 0.00-0.03 H LYMPHOCYTE # (test code = LY#) 1.78 x10 3/uL 1.0-3.8 N MONOCYTE # (test code = MO#) 0.88 x10 3/uL 0.1-0.8 H EOSINOPHIL # (test code = EO#) 0.00 x10 3/uL 0.0-0.2 N BASOPHIL # (test code = BA#) 0.02 x10 3/uL 0.0-0.2 N NUCLEATED RBC # (test code = NRBC#) 0.00 x10 3/uL 0.0-0.1 N BASIC METABOLIC [id number] 16:51:00* Test Item Value Reference Range Interpretation Comme nts SODIUM (test code = NA) 140 mEq/L 134-147 N POTASSIUM (test code = K) 3.9 mEq/L 3.4-5.0 N CHLORIDE (test code = CL) 108 mEq/L 100-108 N CARBON DIOXIDE (test code = CO2) 25 mEq/l 21-33 N ANION GAP (test code = GAP) 11 0-20 N GLUCOSE (test code = GLU) 159 mg/dL 77-141 H BLOOD UREA NITROGEN (test code = BUN) 15 mg/dL 7-25 N GLOMERULAR FILTRATION RATE (test code = GFR) 71.4 80-90 L The Glomerular Filtration Rate is a calculated parameterbased on serum Creatinine, patient age and sex. GFR valuesless than 60 mL/min/1.73 square meters are indicative ofChronic Kidney Disease. Values less than 15 mL/min/1.73square meters indicate Kidney failure. The calculation forGFR is based on the CKD-EPI (2020) calculation. This formulais race indifferent and is the recommended formula for GFRby the National Kidney Foundation for Adults.The GFR will not calculate if the sex is unknown or if thepatient's age is <18 years. CREATININE (test code = CREAT) 0.9 mg/dL 0.6-1.3 N CALCIUM (test code = CA) 8.8 mg/dL 8.0-10.5 N [id number] 16:51:00* Test Item Value Reference Range Interpretation Comme nts PHOSPHOROUS (test code = PHOS) 3.3 MG/DL 2.5-4.9 N [id number] 16:51:00* Test Item Value Reference Range Interpretation Comme nts MAGNESIUM (test code = MAG) 1.97 mg/dL 1.6-2.6 N CALCIUM [id number] 16:51:00* Test Item Value Reference Range Interpretation Comme nts CALCIUM IONIZED (test code = SAI) 1.16 MMOL/L 1.09-1.30 N HGB [id number] 16:30:00* Test Item Value Reference Range Interpretation Comme nts HEMOGLOBIN (test code = HGB) 12.1 g/dL 11.0-15.0 N HEMATOCRIT (test code = HCT) 36.5 % 33.0-45.0 N - XR CHEST 1 [id number] 11:02:00 [facility] 1960 Sex: F FAX: Jeannie Alexander MD [phone] [place]: St: ADM Name: APARNASHANE VISHNU [facility] : 1960 Age/S: 63/F [address] [place] [address] Unit #: [id number] Loc: [place] [address] Phys: Jeannie Burnette MD Acct: [id number] Dis Date: Status: ADM IN PHONE #: [phone] Exam Date: 12/01/2023 1034 FAX #: [phone] Reason: PROCEDURE EXAMS: CPT CODE: [id number] XR CHEST 1 V 30847 Chest Radiograph History: PROCEDURE Comparison: None at this time Location: H45 A single frontal view of the chest is submitted. The heart is within normal limits in size. Pulmonary vasculature is unremarkable.The visualized lung valdovinos appear to be free of disease. The bones appear unremarkable. IMPRESSION: There is no radiographic evidence of acute cardiopulmonary disease. at 1102 Reported and signed by: Steve Estevez M.D. CC: Jeannie Burnette MD Technologist: PAULA Queen) Trnscrd Date/Time/By: 12/01/2023 (8130) : By: OttoPMT Orig Print D/T: S: 12/01/2023 (1512) PAGE 1 Signed ReportACT-ISTAT 2023-12-01 10:53:00* Test Item Value Reference Range Interpretation Comme nts ACT-ISTAT (test code = ACTI) 293 SEC 74-137 H Performed by vero cooper tieing machine operator at [facility] COMPREHENSIVE METABOLIC [id number] 08:51:00* Test Item Value Reference Range Interpretation Comme nts SODIUM (test code = NA) 141 mEq/L 134-147 N POTASSIUM (test code = K) 4.0 mEq/L 3.4-5.0 N CHLORIDE (test code = CL) 109 mEq/L 100-108 H CARBON DIOXIDE (test code = CO2) 26 mEq/l 21-33 N ANION GAP (test code = GAP) 10 0-20 N GLUCOSE (test code = GLU) 112 mg/dL 77-141 N BLOOD UREA NITROGEN (test code = BUN) 15 mg/dL 7-25 N GLOMERULAR FILTRATION RATE (test code = GFR) 71.4 80-90 L The Glomerular Filtration Rate is a calculated parameterbased on serum Creatinine, patient age and sex. GFR valuesless than 60 mL/min/1.73 square meters are indicative ofChronic Kidney Disease. Values less than 15 mL/min/1.73square meters indicate Kidney failure. The calculation forGFR is based on the CKD-EPI (2020) calculation. This formulais race indifferent and is the recommended formula for GFRby the National Kidney Foundation for Adults.The GFR will not calculate if the sex is unknown or if thepatient's age is <18 years. CREATININE (test code = CREAT) 0.9 mg/dL 0.6-1.3 N TOTAL PROTEIN (test code = PROT) 7.0 g/dL 6.4-8.2 N ALBUMIN (test code = ALB) 4.00 g/dL 3.4-5.0 N CALCIUM (test code = CA) 9.3 mg/dL 8.0-10.5 N BILIRUBIN TOTAL (test code = BILT) 1.10 mg/dL 0.0-1.0 H SGOT/AST (test code = AST) 19 IUnit/L 8-34 N SGPT/ALT (test code = ALT) 22 IUnit/L 10-49 N ALKALINE PHOSPHATASE TOTAL (test code = ALKP) 71 IUnit/L 20-125 N LIPID PROFILE (CORONARY RISK)2023-12-01 08:51:00* Test Item Value Reference Range Interpretation Comme nts TRIGLYCERIDES (test code = TRIG) 118 mg/dL 40-150 N CHOLESTEROL (test code = CHOL) 184 mg/dL <200 CHOLESTEROL/HDL RATIO (test code = CHOLHDL) 3.13 RATIO 3.27-4.44 L RISK ASSOCIATED WITH CHOL/HDL RATIOS: RISK MALE FEMALE1/2 AVERAGE 3.43 3.27AVERAGE 4.97 4.442X AVERAGE 9.55 7.053X AVERAGE 23.39 11.04 NOTE THAT THE REFERENCE VALUE IS RELATEDTO RISK LEVELS RECOMMENDED BY THE NATL.HEART, LUNG, AND BLOOD INST. HDL CHOLESTEROL (test code = HDL) 58.7 MG/DL 40-60 N HDL Interpreta tion < 40.0 mg/dL Low (undesirable, high risk)> 60.0 mg/dL High (desirable, low risk) Reference interval for healthy adults was established by theNational Cholesterol Education Program (NCEP). LIPOPROTEIN LDL (test code = LDL) 98.0 mg/dL 0-100 N <100 MOPFSQE13 0-129 NEAR OPTIMAL/ABOVE [id number] [id number] HIGH>BT=674 VERY HIGH*Guidelines provided by the National Cholesterol EducationProgram Adult Treatment Panel III PROTHROMBIN [id number] 08:45:00* Test Item Value Reference Range Interpretation Comme [facility] PROTHROMBIN TIME PATIENT (test code = PTP) 11.3 SECONDS 9.3-12.9 N INTERNATIONAL NORMAL RATIO (test code = INR) 1.0 0.8-1.2 N TARGET INR BY INDICATION Indication INR1. Prophylaxis of venous thrombosis 2.0 - 3.0 (orthopedic surgery), Prophylaxis of venous thrombosis (other than high-risk surgery), Treatment of Deep Vein Thrombosis/Pulmonary Embolism, Prevention of systemic embolism - Tissue heart valves, Acute Myocardial Infarction (to prevent systemic embolism), Valvular heart disease, Atrial Fibrillation, Bileaflet mechanical valve in aortic position.2. Mechanical prosthetic valves (high risk), 2.5 - 3.5 Presence of Lupus Anticoagulant or Antiphospholipid Antibodies, Prevention of systemic embolism - Acute Myocardial Infarction (to prevent recurrent infarct). THROMBOPLASTIN TIME [id number] 08:45:00* Test Item Value Reference Range Interpretation Comme [facility] THROMBOPLASTIN TIME PARTIAL (test code = PTT) 32.5 Seconds 25.0-39.5 N Therapeutic Rang e: 50.4 - 88.3 Seconds Effective 12/21/2018 COVID 19 Asymptomatic IH [id number] 08:45:00* Test Item Value Reference Range Interpretation Comme [facility] COVID 19 Asymptomatic IH AG (test code = COVNONPUIAG) Negative Negative A negative resul t is presumptive and should be confirmedwith an FDA authorized molecular assay, if necessary forpatient management.A positive result does not rule out co-infections withother pathogens.This test detects both viable (live) and non-viable,SARS-CoV, and SARS-CoV-2. Test performance depends on theamount of virus (antigen) in the sample.This test has not been FDA cleared or approved; the test hasbeen authorized by FDA under an Emergency Use Authorization(EUA) for use by laboratories certified under the CLIA thatmeet the requirements to perform moderate, high or waivedcomplexity tests. CBC W/AUTO [id number] 08:30:00* Test Item Value Reference Range Interpretation Comme nts WHITE BLOOD CELL (test code = WBC) 6.0 x10 3/uL 4.5-11.0 N RED BLOOD CELL (test code = RBC) 4.17 x10 6/uL 3.54-5.02 N HEMOGLOBIN (test code = HGB) 12.5 g/dL 11.0-15.0 N HEMATOCRIT (test code = HCT) 38.0 % 33.0-45.0 N MEAN CELL VOLUME (test code = MCV) 91.1 fL 81.0-99.0 N MEAN CELL HGB (test code = MCH) 30.0 pg 27.0-33.0 N MEAN CELL HGB CONCETRATION (test code = MCHC) 32.9 g/dL 33.0-37.0 L RED CELL DISTRIBUTION WIDTH CV (test code = RDW) 12.6 % 11.5-14.5 N RED CELL DISTRIBUTION WIDTH SD (test code = RDW-SD) 41.6 fL 37.0-54.0 N PLATELET COUNT (test code = PLT) 197 x10 3/uL 150-400 N MEAN PLATELET VOLUME (test c ode = MPV) 11.8 fL 7.0-9.0 H NEUTROPHIL % (test code = NT%) 53.3 % 56.0-77.0 L IMMATURE GRANULOCYTE % (test code = IG%) 0.2 % 0.0-2.0 N LYMPHOCYTE % (test code = LY%) 35.4 % 14.0-32.0 H MONOCYTE % (test code = MO%) 8.5 % 4.8-9.0 N EOSINOPHIL % (test code = EO%) 1.8 % 0.3-3.7 N BASOPHIL % (test code = BA%) 0.8 % 0.0-2.0 N NUCLEATED RBC % (test code = NRBC%) 0.0 % 0-0 N NEUTROPHIL # (test code = NT#) 3.19 x10 3/uL 2.0-7.6 N IMMATURE GRANULOCYTE # (test code = IG#) 0.01 x10 3/uL 0.00-0.03 N LYMPHOCYTE # (test code = LY#) 2.12 x10 3/uL 1.0-3.8 N MONOCYTE # (test code = MO#) 0.51 x10 3/uL 0.1-0.8 N EOSINOPHIL # (test code = EO#) 0.11 x10 3/uL 0.0-0.2 N BASOPHIL # (test code = BA#) 0.05 x10 3/uL 0.0-0.2 N NUCLEATED RBC # (test code = NRBC#) 0.00 x10 3/uL 0.0-0.1 N Notes Date/Time Note Provider Source 2023-12-02 08:08:00 [id number] LmBIvmS1+uJLFQRCaJyvDEeu/t26e 5oc7ah1+ZISDxpK9Iwet5yDPNpY6113-29-32C39:08:00 [facility] ([facility])Discharge SummaryREPORT#:[id number] REPORT STATUS: SignedREPORT INITIALIZATION DATE:12/02/23 TIME: 807 PATIENT: SHANE BRAUN UNIT #: [id number]#: [id number] [address] AGE: 63 SEX: F ATTEND: Jeannie Burnette MDADM AUTHOR: Jennifer Xie NPREPT SERVICE DT/TIME: 12/02/23 0808* ALL edits or amendments must be made on the electronic/computer document * PCP PCPDischarge to: home General InformationFree Text A P:This is a 63-year-old female with past medical history of hypertension, hyperlipidemia who underwent carotid angiogram and found to have severe left internal carotid artery stenosis. Patient denies any history of stroke. Denies any symptoms of dizziness, syncopeor other neurologic changes. Patient is admitted for left carotid endarterectomy.Assessment/plan1. Hypertension2. Hyperlipidemia3. Carotid stenosis Patient is admitted for left carotid intervention. Patient was seen and examined Dr. Burnette. The risk of the operation including , bleeding, infection, heart attack, stroke, prolonged ICU stay, renal failure, dialysis, need for long-term rehabilitation etc. was discussed with the patient. The patient's questions were answered and patient agreed to proceed with surgery. at 1548 12/01/2022s/p left CEAIncision site CDI, approximated, no significant swelling or bruising notedPt reports tenderness, and hoarsenessNo neurological deficit noted, steady gait, clear speechJP drain with minimal output and DC'd without complication, patient tolerated wellDischarge instructions and follow up care provided.- follow up with post op clinic in 1-2 weeks.Discharge date: 12/05/23Discharge diagnosis:S/P Left CEAHospital course:as abovePt. condition on discharge: stable Med Rec PCPPCP:PCP: No Primary or Family Physician Med RecDischarge meds:Continue taking these medications:ASPIRIN (ASPIRIN) 81 MG TAB.CHEW 81 MILLIGRAM ORAL DAILY. ROSUVASTATIN (CRESTOR) 20 MG TAB 20 MILLIGRAM ORAL DAILY. Start taking the following new medications:CLOPIDOGREL (PLAVIX) 75 MG TAB 75 MILLIGRAM ORAL DAILY. Qty = 90 Refills = 3 ObjectiveVS/I OLast Documented: Result Date Time Pulse Ox 92 12/01 0800 B/P 125/59 12/01 0800 B/P Mean 85 12/01 0800 Pulse 87 12/01 0800 Resp 16 12/01 0800 Temp 99.0 11/30 2000 O2 Flow Rate 1 11/30 1600 O2 Delivery Nasal cannula 11/30 1526 24 hour I O ending at 0700: 12/01 0700 11/30 1900 Intake Total 500 Output Total 1001 Balance -501 Intake, Oral 500 Output, 1 Drainage Output, Urine 1000 Patient 74 kg Weight Weight Bed scale Measurement Method PATIENT WEIGHT: Weight (lb): 163Weight (oz): 2.27Weight (kg): 74.000 General appearance: alert, awake, oriented, no acute distressHead/Eyes: PERRLANeck: full range of motion, tendernessCardiovascular: normal capillary refill, regular rate rhythm, normal heart soundsRespiratory: clear to auscultation, no distressGI: soft, non-tenderWound/incision: Location:Left neck CEA incision, CDIPsychiatry: normal affect ResultsFindings/Data:Laboratory Tests: 12/01 11/30 11/30 0339 1606 1043 Chemistry Sodium (134 - 147 mEq/L) 138 140 Potassium (3.4 - 5.0 mEq/L) 4.3 3.9 Chloride (100 - 108 mEq/L) 104 108 Carbon Dioxide (21 - 33 mEq/l) 26 25 Anion Gap (0 - 20) 13 11 BUN (7 - 25 mg/dL) 11 15 Creatinine (0.6 - 1.3 mg/dL) 0.8 0.9 Glomerular Filtr Rate (80 - 90) 82.2 71.4 L Glucose (77 - 141 mg/dL) 139 159 H Calcium (8.0 - 10.5 mg/dL) 8.8 8.8 Ionized Calcium [place] (1.09 - 1.30 MMOL/L) 1.22 1.16 Phosphorus (2.5 - 4.9 MG/DL) 3.2 3.3 Magnesium (1.6 - 2.6 mg/dL) 2.22 1.97 Coagulation Activated Coag Time (74 - 137 SEC) 293 H Hematology WBC (4.5 - 11.0 x10 3/uL) 11.4 H RBC (3.54 - 5.02 x10 6/uL) 3.84 Hgb (11.0 - 15.0 g/dL) 11.6 12.1 Hct (33.0 - 45.0 %) 35.2 36.5 MCV (81.0 - 99.0 fL) 91.7 MCH (27.0 - 33.0 pg) 30.2 MCHC (33.0 - 37.0 g/dL) 33.0 RDW (11.5 - 14.5 %) 12.7 Plt Count (150 - 400 x10 3/uL) 227 MPV (7.0 - 9.0 fL) 12.4 H Neut % (Auto) (56.0 - 77.0 %) 76.2 Lymph % (Auto) (14.0 - 32.0 %) 15.6 Calhoun % (Auto) (4.8 - 9.0 %) 7.7 Eos % (Auto) (0.3 - 3.7 %) 0.0 L Baso % (Auto) (0.0 - 2.0 %) 0.2 Neut # (Auto) (2.0 - 7.6 x10 3/uL) 8.72 H Lymph # (Auto) (1.0 - 3.8 x10 3/uL) 1.78 Calhoun # (Auto) (0.1 - 0.8 x10 3/uL) 0.88 H Eos # (Auto) (0.0 - 0.2 x10 3/uL) 0.00 Baso # (Auto) (0.0 - 0.2 x10 3/uL) 0.02 Abs Immat Gran (auto) (0.00 - 0.03 x10 3/uL) 0.04 H Immature Gran % (0.0 - 2.0 %) 0.3 Nucleated RBC % (0 - 0 %) 0.0 Nucleated RBCs # (Man) (0.0 - 0.1 x10 3/uL) 0.00 Radiology data:Recent Impressions:RADIOLOGY - XR CHEST 1 V 11/30 1034 Report Impression - Status: SIGNED Entered: 12/01/2023 1105 IMPRESSION: There is no radiographic evidence of acute cardiopulmonary disease. Impression By: Diane Estevez M.D. Discharge Instructions PCPPCP:PCP: No Primary or Family Physician )( Discharge to: Home/Self Care Discharge InstructionsAdditional Discharge Routines: Attending Follow-Up)( Activity: Resume Normal Activity, As Tolerated, Do not Submerge Incision, No Swimming, Shower Only)( Wound/dressing care: Do not submerge incision, Keep wound clean and dry, OK to shower tomorrow)( Notify PCP of these S/S: Chest Pain, Increased redness, Increased swelling, Increased tenderness/pain, Moderate/large bleeding, Numbness, Pus-like discharge, Red line from wound, Shortness of breath, Temp. 101 or greater)( Additional instructions:Dr. Burnette office will call you to schedule your post op visit in 1-[address] Burnette office with any questions or concerns.Prescriptions: e-prescribe Follow-up AppointmentsConsulting provider 1: Provider 1: Jeannie Burnette MD at 0821 RPT #:[id number] OF REPORTDSDischarge fftdvjc1425-16-07X81:08:00G.[id number] ailable for patient fcytWTTJKGXURQXQJO9868-42-94K83:21:55 [facility] 2023-12-01 18:44:00 [id number] U+eRnE84xU1ALz76x/16YIqCg5n1x QKiOmxq1aZwUllDifW91g34Vv5B7293-37-69E51:44:27579 6-[address] [address] PATIENT NAME: SHANE BRAUN ADMIT DATE: 12/01/23ACCOUNT NO: [id number] ROOM NO: [facility] AGE: 63 REPORT TYPE: OPERATIVE REPORT SEX: F ADMITTING PHYSICIAN:Jeannie Burnette MD ATTENDING PHYSICIAN:Jeannie Burnette MD OPERATION DATE: 12/01/2023 PREOPERATIVE DIAGNOSIS: Severe asymptomatic left internal carotid artery stenosis. POSTOPERATIVE DIAGNOSIS: Severe asymptomatic left internal carotid artery stenosis. OPERATION: Left carotid endarterectomy. SURGEON: Tamy Burnette M.D. STATIONARY ENGINEER REFRIGERATION: Trey Youngblood. ANESTHESIOLOGIST: Dr. Rodgers. ANESTHESIA: General endotracheal anesthesia. ESTIMATED BLOOD LOSS: 20 mL. INDICATIONS: Ms. Braun is a very pleasant 63-year-old female with severe asymptomatic left internal carotid artery stenosis. After due preop counseling,she was brought to the operating room today for left carotid endarterectomy. FINDINGS: Heavily calcified plaque at the bifurcation of the left common carotid artery leading to a pinhole opening in the left internal carotid artery. Following endarterectomy, there was a good endpoint in the left internal carotid artery. The hypoglossal nerve was identified and protected all throughout the duration of the procedure. The patient was moving all extremities at the tongue was in the midline at the end of the procedure. DESCRIPTION OF PROCEDURE: Ms. Braun was identified in the preoperative holdingarea and brought to the operating room and placed supine on the operating table. After induction of general endotracheal anesthesia, Jasso catheter, and antibiotics were placed. The patient's left side of the neck was prepped and draped in standard surgical fashion. A 4 cm incision was made along the anterior border of the middle third of the left sternocleidomastoid. Platysma was divided with Bovie cautery. The deep fascia was opened. The left common, left internal, and left external carotid artery were identified, dissected. Thehypoglossal nerve was identified and protected all throughout the procedure. The patient was heparinized with 8000 units of heparin. After waiting for 3 minutes, the bifurcation of the left common carotid artery was isolated between 3 profunda clamp. Arteriotomy was performed on the left common carotid artery PATIENT NAME: SHANE BRAUN using #11 blade. This was then extended onto the left internal carotid artery using Vera scissors. The patient's cerebral oximetry remained unchanged and hence I decided not to use a shunt. Endarterectomy of the left common and internal carotid artery was performed using a [place] dissector. Following endarterectomy, the patient had a good endpoint in the left internal carotid artery. Endarterectomy of the left external carotid artery was performed using eversion technique. The artery was then irrigated with a 50 mL of heparinized saline. This was a good back bleeding from the left internal carotid artery. Patch repair of the left common and internal carotid artery was performed using a bovine pericardial patch and running 6-0 Prolene suture. Prior to tying the patch down, careful de-aeration was performed. A 7 MICHAEL was placed in the neck. Hemostasis was confirmed and the incision was closed in layer using 2-0 Vicryl for platysma and a 4-0 Monocryl for skin. The patient was extubated in the operating room and moved to PACU in stable condition. The patient was moving all extremities and the tongue was in the midline at the end of the procedure. Dictated By: Tamy Burnette MD Date Dictated: 12/01/2023 18:44:15Date Transcribed: 12/01/2023 22:28:07KAHLIL/Stephanie #: [id number] ID: [id number] by Jeannie Burnette MD On 12/02/2023 07:39:27 AM at 0739 PATIENT NAME: SHANE BRAUN lxqpza5829-64-64P84:28:00G.[id number] lable for patient pndcHXPDNWQZGLTXRT6979-65-66R49:39:57 [facility] 2023-12-01 16:36:00 [id number] [id number] EXkxa5njUohMcUCSrjJw4+0RvGD9155-14-93D26:36:00 [facility] ([facility])Critical Care Consult NoteREPORT#:[id number] REPORT STATUS: SignedREPORT INITIALIZATION DATE:12/01/23 TIME: 163 PATIENT: SHANE BRAUN UNIT #: [id number]#: [id number] [address] AGE: 63 SEX: F ATTEND: Jeannie Burnette MDADM AUTHOR: Daiana Russell APRNNPREPT SERVICE DT/TIME: 12/01/231635* ALL edits or amendments must be made on the electronic/computer document * History of Present Illness HPIRequesting clinician: Dr. Rowan for consult:Post op careChief complaint:Left carotid stenosisPCP:PCP: No Primary or Family Physician HPI:Shane Braun is a 63-year-old female with past medical history of hypertension and hyperlipidemia who was found to have severe left internal carotid artery stenosis post carotid angiogram. Today she was admitted to the hospital for elective surgical procedure with Dr. Burnette. She underwent left carotid endarterectomy. She denies any changes in LOC, blurry vision or changes in speech. Denies any dizziness or syncope. Hx Obtained From Patient, Spouse History - Adult longitudinalPast medical history:Reports: Hypertension. Additional medical history:HLD. Left Carotid stenosisAlcohol use: Denies EtOH useDrug use: BenzodiazepinesSmoking status for patients 13 years old or older: Former SmokerOther social history: Primary family support, Local resident, Good social supportAllergies:Coded Allergies:No Known Allergies (11/27/23) Ambulatory status: Independent Review of Systems ROSAdditional notes:A review of systems was conducted with patient. All pertinent positives and negative were mentioned in HPI. Objective Physical ExamVS/I O:Last Documented: Result Date Time Pulse Ox 97 11/30 1626 B/P 137/60 11/30 1626 B/P Mean 83 11/30 1626 Pulse 78 11/30 1626 Resp 20 11/30 1626 Temp 99.3 11/30 1600 O2 Delivery Nasal cannula 11/30 1526 O2 Flow Rate 2 11/30 1526 Patient Weight and BMI Weight (kg): 67.273 BMI: 24.7 Medications:Active Meds + DC'd Last 24 HrsAspirin (ASPIRIN) 81 MG DAILY PO Clopidogrel Bisulfate (Plavix) 75 MG DAILY PO Docusate Sodium (COLACE) 100 MG BID PO Mupirocin (BACTROBAN 2% 22 GM OINTMENT) 1 APPLIC BID NASAL Acetaminophen (TYLENOL) 650 MG Q4H PRN PRN PO Bisacodyl (DULCOLAX) 10 MG DAILY PRN PRN RECTAL Hydrocodone Bitart/Acetaminophen (NORCO 5/325) 1 TAB Q4H PRN PRN PO Magnesium Hydroxide (MILK OF MAGNESIA) 30 ML Q6H PRN PRN PO Fentanyl Citrate (SUBLIMAZE) 0 .STK-MED ONE .ROUTE (DC) Diphenhydramine HCl (BENADRYL) 12.5 MG PACU ONCE PRN IV Fentanyl Citrate (SUBLIMAZE) 100 MCG PACU Q10MIN PRN PRN IV Fentanyl Citrate (SUBLIMAZE) 50 MCG PACU Q10MIN PRN PRN IV Hydralazine HCl (APRESOLINE) 5 MG PACU Q10MIN PRN PRN IV Hydrocodone Bitart/Acetaminophen (NORCO 5/325) 1 TAB PACU ONCE PO (CKD) Hydromorphone HCl (DILAUDID) 1 MG PACU Q10MIN PRN PRN IV Hydromorphone HCl (DILAUDID) 0.5 MG PACU Q5MIN PRN PRN IV Insulin Human Lispro (HUMALOG) 0 PACU ONCE PRN SUBQ Labetalol HCl (labetalol) 5 MG PACU Q10MIN PRN PRN IV Meperidine HCl (MEPERIDINE HCL/PF) 12.5 MG PACU ONCE PRN IV Morphine Sulfate (morphine SULFATE) 2 MG PACU Q10MIN PRN PRN IV Ondansetron HCl (ZOFRAN) 4 MG PACU ONCE PRN IV Promethazine HCl (PHENERGAN) 25 MG PACU ONCE PRN PO Ropivacaine (NAROPIN 0.5% 150 MG/30mL) 150 MG ASDIR PRN LOCAL Tramadol HCl (ULTRAM) 50 MG PACU ONCE PO (CKD) Ondansetron HCl (ZOFRAN) 0 .STK-MED ONE .ROUTE (DC) Hydralazine HCl (APRESOLINE) 0 .STK-MED ONE .ROUTE (DC) Sugammadex Sodium (BRIDION) 0 .STK-MED ONE IV (DC) Dexamethasone Sodium Phosphate (DECADRON) 0 .STK-MED ONE .ROUTE (DC) Fentanyl Citrate (SUBLIMAZE) 0 .STK-MED ONE .ROUTE (DC) Lidocaine HCl (XYLOCAINE) 0 .STK-MED ONE .ROUTE (DC) Midazolam HCl (VERSED) 0 .STK-MED ONE .ROUTE (DC) Norepinephrine Bitartrate (LEVOPHED BITARTATE) 0 .STK-MED ONE IV (DC) Ondansetron HCl (ZOFRAN) 0 .STK-MED ONE .ROUTE (DC) Propofol (DIPRIVAN 200MG/20ML INJECTION) 20 ML .STK-MED ONE IV (DC) Rocuronium [place] (ZEMURON) 0 .STK-MED ONE IV (DC) Sodium Chloride (SODIUM CHLORIDE 0.9%) 250 ML .STK-MED ONE IV (DC) Cefazolin Sodium (KEFZOL OR ANCEF) 0 .STK-MED ONE .ROUTE (DC) Lidocaine HCl (XYLOCAINE IV) 0 .STK-MED ONE IV (DC) Acetaminophen (TYLENOL EXTRA STRENGTH) 1,000 MG PREOP ONCALL PO (CKD) Gabapentin (NEURONTIN) 200 MG PREOP ONCALL PO (CKD) Acetaminophen (TYLENOL EXTRA STRENGTH) 0 .STK-MED ONE .ROUTE (DC) Gabapentin (NEURONTIN) 0 .STK-MED ONE .ROUTE (DC) Heparin Sodium (HEPARIN SODIUM) 0 .STK-MED ONE .ROUTE (DC) Lidocaine HCl (LIDOCAINE HCL/PF) 0 .STK-MED ONE LOCAL (DC) Thrombin (RECOTHROM) 0 .STK-MED ONE TOPICAL (DC) ResultsFindings/Data:Laboratory Tests 12/01/23 1606:[Embedded Image Not Available] 12/01/23 0809:[Embedded Image Not Available]Laboratory Tests 11/30 808 Chemistry Sodium (134 - 147 mEq/L) 141 Potassium (3.4 - 5.0 mEq/L) 4.0 Chloride (100 - 108 mEq/L) 109 H Carbon Dioxide (21 - 33 mEq/l) 26 Anion Gap (0 - 20) 10 BUN (7 - 25 mg/dL) 15 Creatinine (0.6 - 1.3 mg/dL) 0.9 Glomerular Filtr Rate (80 - 90) 71.4 L Glucose (77 - 141 mg/dL) 112 Calcium (8.0 - 10.5 mg/dL) 9.3 Total Bilirubin (0.0 - 1.0 mg/dL) 1.10 H AST (8 - 34 IUnit/L) 19 ALT (10 - 49 IUnit/L) 22 Total Alk Phosphatase (20 - 125 IUnit/L) 71 Total Protein (6.4 - 8.2 g/dL) 7.0 Albumin (3.4 - 5.0 g/dL) 4.00 Triglycerides (40 - 150 mg/dL) 118 Cholesterol (<200 mg/dL) 184 LDL Cholesterol [place] (0 - 100 mg/dL) 98.0 HDL Cholesterol (40 - 60 MG/DL) 58.7 Cholesterol/HDL Ratio (3.27 - 4.44 RATIO) 3.13 L Laboratory Tests 11/30 11/30 1043 0809 Coagulation INR (0.8 - 1.2) 1.0 PTT ([place]) (25.0 - 39.5 Seconds) 32.5 PT Patient/Control Mix (9.3 - 12.9 SECONDS) 11.3 Activated Coag Time (74 - 137 SEC) 293 H Laboratory Tests 11/30 11/30 1606 0809 Hematology WBC (4.5 - 11.0 x10 3/uL) 6.0 RBC (3.54 - 5.02 x10 6/uL) 4.17 Hgb (11.0 - 15.0 g/dL) 12.1 12.5 Hct (33.0 - 45.0 %) 36.5 38.0 MCV (81.0 - 99.0 fL) 91.1 MCH (27.0 - 33.0 pg) 30.0 MCHC (33.0 - 37.0 g/dL) 32.9 L RDW (11.5 - 14.5 %) 12.6 Plt Count (150 - 400 x10 3/uL) 197 MPV (7.0 - 9.0 fL) 11.8 H Neut % (Auto) (56.0 - 77.0 %) 53.3 L Lymph % (Auto) (14.0 - 32.0 %) 35.4 H [place] % (Auto) (4.8 - 9.0 %) 8.5 Eos % (Auto) (0.3 - 3.7 %) 1.8 Baso % (Auto) (0.0 - 2.0 %) 0.8 Neut # (Auto) (2.0 - 7.6 x10 3/uL) 3.19 Lymph # (Auto) (1.0 - 3.8 x10 3/uL) 2.12 [place] # (Auto) (0.1 - 0.8 x10 3/uL) 0.51 Eos # (Auto) (0.0 - 0.2 x10 3/uL) 0.11 Baso # (Auto) (0.0 - 0.2 x10 3/uL) 0.05 Abs Immat Gran (auto) (0.00 - 0.03 x10 3/uL) 0.01 Immature Gran % (0.0 - 2.0 %) 0.2 Nucleated RBC % (0 - 0 %) 0.0 Nucleated RBCs # (Man) (0.0 - 0.1 x10 3/uL) 0.00 Laboratory Tests 11/30 08 Serology SARS-CoV-2 Ag (Rapid) (Negative) Negative Microbiology:11/30 1624 NASAL: MRSA DNA Surveillance Screen - COLB11/30 0809 URINE: Urine Culture - REC 0809 NASAL: MSSA Surveillance Screen - RECD11/30 0809 NASAL: MRSA DNA Surveillance Screen - 0805 URINE: Urine Culture - CAN Cancelled: Radiology data:Recent Impressions:RADIOLOGY - XR CHEST 1 V 11/30 1034 Report Impression - Status: SIGNED Entered: 12/01/2023 1105 IMPRESSION: There is no radiographic evidence of acute cardiopulmonary disease. Impression By: Diane - Steve Estevez M.D. Results: labs reviewed, vital signs reviewed, rhythm personally rev'd, x-ray personally reviewed, current med profile rev'd Free Text Obj NotesFree Text Obj Notes:[place]- Awake, alert, interactive, no distressHead/Eyes: NC/AT, pupils round, reactive, anicteric scleraNeck-tenderness, no swelling, has L surgical dressing in place with bulb drainage, small amount of sanguineos output noted. CV-S1-S2, regular rate and rhythm, no murmurs, no gallopsLungs-CTAB. GI/- soft, nontender, non-distended, bowel sounds presentExt-no edema, warm, palpable pulse, no cyanosisNeuro-AA0x3. Speech is fluent, moves all extremities equally, strong gripPsych-calm Diagnosis, Assessment Plan Diagnosis, Assessment PlanOrders: Procedure Date/time Status CARDIAC DIET 11/30 D Active Plan discussed with: patient, spouse/partner, collaborating MD, nurse, interdisccare team, pharmacy/pharmacistCritical care time: Minutes: 33 Code Status/Resusc. DiscussionResuscitation discussion: Discussed with: patient and familyCode status: full codeFree text DxA P:Shane Braun is a 63-year-old female with past medical history of hypertension and hyperlipidemia who was found to have severe left internal carotid artery stenosis post carotid angiogram. Today she was admitted to the hospital for elective surgical procedure with Dr. Burnette. She underwent left carotid endarterectomy. She denies any changes in LOC, blurry vision or changes in speech. Denies any dizziness or syncope. Assessment/Plan:Severe left internal carotid artery stenosis* S/p L CEA. * Frequent neurovascular checks* Pain control* Monitor surgical site and hemoglobin. * Transfuse for < 8 or if patient becomes symptomatic.* ASA, Plavix * OOB to chair. PT/OT Hypertension* PRN hydralazine for SBP > 150 Hyperlipidemia* Resume home dose statin Post op pain* As needed norco, fentanyl. May order diet if she passes BSST. Monitor intake and creatinine.Replace electrolytes as neededThank you for your kind consult. ICC will follow. at 1727 RPT #:[id number] OF [id number]:36:00G.PDOC2 [id number] for patient [id number]:29:53 HCACL 2023-12-01 15:44:00 [id number]:44:00 [facility] ([facility])History Physical - AdultREPORT#:[id number] REPORT STATUS: SignedREPORT INITIALIZATION DATE:12/01/23 TIME: 1543 PATIENT: SHANE BRAUN UNIT #: [id number]#: [id number] [address] AGE: 63 SEX: F ATTEND: Jeannie Burnette MDADM AUTHOR: Marivel Aadmson PhysicREPT SERVICE DT/TIME: 12/01/231543* ALL edits or amendments must be made on the electronic/computer document * History of Present Illness HPIChief complaint:Carotid stenosisHPI:This is a 63-year-old female with past medical history of hypertension, hyperlipidemia who underwent carotid angiogram and found to have severe left internal carotid artery stenosis. Patient denies any history of stroke. Denies any symptoms of dizziness, syncopeor other neurologic changes. Patient is admitted for left carotid endarterectomy. HistorySmoking status for patients 13 years old or older: Former Smoker Medication/Allergy-Vaccine HxAllergies:Coded Allergies:No Known Allergies (11/27/23) Review of Systems Free Text ROS NotesFree Text ROS Notes:Constitutional: Negative for fever, chills, weight loss Skin: Negative for rash, negative for swelling, negative for any laceration HEENT: Denies hearing loss, denies any ear ringing, denies any earache, denies any sore throat Respiratory: Denies dyspnea on exertion, denies hemoptysis denies any cough, denies any shortness of breath Cardiac: Denies chest pain, denies palpitations, denies orthopnea GI: Denies constipation, denies diarrhea : Denies hematuria, denies dysuria, denies flank pain Musculoskeletal: Denies any joint pain, denies any joint swelling, denies any myalgia Hematologic: Denies any easy bruising, denies any bleeding Endocrine: denies any night sweats, denies polyuria OR polydipsia Neurologic: Denies any lightheaded, denies any headache, denies any confusion, denies any dizziness Physical ExamVS/I OVital Signs: Date Time Temp Pulse Resp B/P B/P Pulse O2 O2 Flow FiO2 Mean Ox Delivery Rate 11/30 1530 82 16 122/58 100 11/30 1526 Nasal 2 cannula 11/30 1500 72 14 121/55 100 Nasal 2 cannula 11/30 1430 74 14 115/56 98 11/30 1400 72 14 116/56 98 11/30 1336 69 14 113/57 97 11/30 1333 63 15 111/56 99 11/30 1315 58 16 114/55 98 11/30 1300 60 14 126/62 98 11/30 1245 64 14 145/67 98 11/30 1230 63 14 137/65 96 11/30 1215 66 16 160/70 98 11/30 1200 68 16 173/85 99 11/30 1155 64 14 176/88 98 Nasal 2 cannula 11/30 1150 64 16 190/91 97 11/30 1145 70 14 187/90 99 11/30 1140 70 16 194/93 100 11/30 1135 70 16 202/94 98 11/30 1130 Simple 6 mask 11/30 1130 97.8 70 16 190/93 100 Simple 6 mask PATIENT WEIGHT: Weight (lb): 148Weight (oz): 4.99Weight (kg): 67.273 General: well nourished, well groomed, no acute distress. HEENT: conjunctiva clear, extraocular movement intact, PERRLA, Neck: Carotid bruit leftRespiratory: Clear to auscultation, no distress. Cardiovascular: regular rate and rhythm, S1, S2, normal, without murmurs, rubs or gallops, pulses, palpable, symetric. Abdomen: Soft, non tender. No rebound. No guarding Extremities: dry, moves all. Musculoskeletal: Full range of motion, no CVA tenderness, no muscle spasm Skin: warm, dry, no, lesions, rash. Neurologic: Alert and oriented x3. Psychiatric: affect and demeanor normal Diagnosis, Assessment Plan Free Text DxA P NotesFree Text DxA P Notes:This is a 63-year-old female with past medical history of hypertension, hyperlipidemia who underwent carotid angiogram and found to have severe left internal carotid artery stenosis. Patient denies any history of stroke. Denies any symptoms of dizziness, syncopeor other neurologic changes. Patient is admitted for left carotid endarterectomy. Assessment/plan1. Hypertension2. Hyperlipidemia3. Carotid stenosis Patient is admitted for left carotid intervention. Patient was seen and examined Dr. Burnette. The risk of the operation including , bleeding, infection, heart attack, stroke, prolonged ICU stay, renal failure, dialysis, need for long-term rehabilitation etc. was discussed with the patient. The patient's questions were answered and patient agreed to proceed with surgery. at 1548 RPT #:[id number] OF REPORTHPHistory and physical [id number]:44:00G.[id number] AVAvailable for patient [id number]:48:30 HCACL
--- NOTE | 2023-12-03 05:03 | ER ---
Nurse's Notes [facility] Name: Shane Velasquez Age: 63 yrs Sex: Female : 1960 Arrival Date: 12/03/2023 Time: 04:22 Bed 16 Private MD: Diagnosis: Postoperative pain left neck, encounter for dressing, history of left carotid endarterectomy with postoperative pain Presentation: 12/02 04:36 Chief complaint: Patient states: post left carotid surgery pain and swelling. vc1 Coronavirus screen: At this time, the client does not indicate any symptoms associated with coronavirus-19. Ebola Screen: Patient negative for fever greater than or equal to 101.5 degrees Fahrenheit, and additional compatible Ebola Virus Disease symptoms Patient denies exposure to infectious person. Patient denies travel to an Ebola-affected area in the 21 days before illness onset. No symptoms or risks identified at this time. Initial Sepsis Screen: Does the patient meet any 2 criteria? No. Patient's initial sepsis screen is negative. Does the patient have a suspected source of infection? No. Patient's initial sepsis screen is negative. Risk Assessment: Do you want to hurt yourself or someone else? Patient reports no desire to harm self or others. Onset of symptoms was December 03, 2023. 04:36 Method Of Arrival: Ambulatory vc1 04:36 Acuity: MADI 3 vc1 04:39 Care prior to arrival: None. Activity prior to arrival: None. Mechanism of Injury: No vc1 Mechanism of Injury. Transition of care: patient was not received from another setting of care. Triage Assessment: 04:39 General: Appears in no apparent distress. uncomfortable, slender, well groomed, vc1 Behavior is cooperative, flat. Pain: Complains of pain in left lateral aspect of neck Pain radiates to left ear Pain currently is 8 out of 10 on a pain scale. Quality of pain is described as pressure, Aggravated by repositioning, Noted to be quiet/stoic, resistant to movement. EENT: No deficits noted. No signs and/or symptoms were reported regarding the EENT system. Neuro: Level of Consciousness is awake, alert, obeys commands, Oriented to person, place, time, situation, Appropriate for age. Cardiovascular: No deficits noted. Heart tones S1 S2. Respiratory: Airway is patent Respiratory effort is even, unlabored, Respiratory pattern is regular, symmetrical. GI: No deficits noted. No signs and/or symptoms were reported involving the gastrointestinal system. : No deficits noted. No signs and/or symptoms were reported regarding the genitourinary system. Derm: surgical wound to left side of neck. No redness or drainage noted. Musculoskeletal: No deficits noted. No signs and/or symptoms reported regarding the musculoskeletal system. Historical: - Allergies: 04:37 No Known Allergies; vc1 - PMHx: 04:37 Hypercholesterolemia; vc1 - PSHx: 04:37 breast augmentation; eye; tubal ligation; Left carotid artery surgery (tubal ligation); vc1 - Immunization history:: Adult Immunizations up to date. - Social history:: Smoking status: Patient denies any tobacco usage or history of. - Family history:: not pertinent. Screenin:41 [facility] ED Fall Risk Assessment (Adult) History of falling in the last 3 months, vc1 including since admission No falls in past 3 months (0 pts) Confusion or Disorientation No (0 pts) Intoxicated or Sedated No (0 pts) Impaired Gait No (0 pts) Mobility Assist Device Used No (0 pt) Altered Elimination No (0 pt) Score/Fall Risk Level 0 - 2 = Low Risk Oriented to surroundings, Maintained a safe environment, Educated pt \T\ family on fall prevention, incl call for assistance when getting out of bed. Abuse screen: Denies threats or abuse. Nutritional screening: No deficits noted. Tuberculosis screening: No symptoms or risk factors identified. Vital Signs: 04:36 BP 158 / 81; Pulse 69; Resp 14; Temp 97.2; Pulse Ox 95% ; Weight 71.67 kg; Height 5 ft. vc1 5 in. ; Pain 8/10; 04:36 Body Mass Index 26.29 (71.67 kg, 165.1 cm) vc1 04:36 Pain Scale: Adult vc1 ED Course: 04:24 Patient arrived in ED. ra3 04:31 Kaz Morin MD is Attending Physician. sp4 04:36 Radha Felder RN is Primary Nurse. vc1 04:37 Triage completed. vc1 04:41 Arm band placed on right wrist. vc1 04:41 Patient has correct armband on for positive identification. Bed in low position. Call vc1 light in reach. Pulse ox on. NIBP on. 05:20 Provided Education on: f/u with surgeon. vc1 05:20 No provider procedures requiring assistance completed. Patient did not have IV access vc1 during this emergency room visit. Administered Medications: 05:16 Drug: [place] PO 10 mg-325 mg 1 tabs PO once Route: PO; vc1 05:17 Follow up: Response: Medication administered at discharge. vc1 05:16 Drug: Ondansetron PO 4 mg PO once Route: PO; vc1 05:17 Follow up: Response: Medication administered at discharge. vc1 Medication: 04:41 VIS not applicable for this client. vc1 Outcome: 05:03 Discharge ordered by . sp4 05:20 Discharged to home ambulatory, with significant other, vc1 05:20 Condition: good 05:20 Discharge instructions given to patient, Instructed on discharge instructions, follow up and referral plans. medication usage, Demonstrated understanding of instructions, follow-up care, medications, Prescriptions given X 1, 05:21 Patient left the ED. vc1 Signatures: Radha Felder RN RN vc1 Kaz Morin MD MD sp4 Alis Jacobo 3
--- NOTE | 2023-12-03 05:03 | EDPHYS ---
Physician Documentation [facility] Name: Shane Velasquez Age: 63 yrs Sex: Female : 1960 Arrival Date: 12/03/2023 Time: 04:22 Bed 16 Private MD: ED Physician Kaz Morin HPI: 12/02 04:31 This 63 yrs old Other Race Female presents to ER via Unassigned with complaints of sp4 bleeding and swelling post neck sx. 04:53 Patient is a very pleasant 63-year-old female, presents with postoperative pain of the sp4 left neck at the site of left carotid endarterectomy.. Patient is 2 days postop after her surgery on Thursday12/01/[address] Burnette with [facility] vascular surgery. Patient is worried Worsening pain and would like to have her wound evaluated. . Historical: - Allergies: 04:37 No Known Allergies; vc1 - PMHx: 04:37 Hypercholesterolemia; vc1 - PSHx: 04:37 breast augmentation; eye; tubal ligation; Left carotid artery surgery (tubal ligation); vc1 - Immunization history:: Adult Immunizations up to date. - Social history:: Smoking status: Patient denies any tobacco usage or history of. - Family history:: not pertinent. ROS: 04:59 Constitutional: Negative for fever, chills, and weight loss, positive left neck pain sp4 and tenderness from recent surgery 04:59 All other systems are negative, Exam: 04:59 Constitutional: This is a well developed, well nourished patient who is awake, alert, sp4 and in no acute distress. Head/Face: Normocephalic, atraumatic. Eyes: Pupils equal round and reactive to light, extra-ocular motions intact. Lids and lashes normal. Conjunctiva and sclera are not injected. Cornea within normal limits. Periorbital areas with no swelling, redness, or edema. ENT: Nares patent. No nasal discharge, no septal abnormalities noted. Tympanic membranes are normal and external auditory canals are clear. Oropharynx with no redness, swelling, or masses, exudates, or evidence of obstruction, uvula midline. Mucous membranes moist. Neck: Trachea midline, no thyromegaly or masses palpated, and no cervical lymphadenopathy. Supple, there is left postoperative incision from recent left carotid endarterectomy with surgery incision sutured and appearing clean dry and intact. Sterile bandage was changed Chest/axilla: Normal chest wall appearance and motion. Nontender with no deformity. No lesions are appreciated. Cardiovascular: Regular rate and rhythm with a normal S1 and S2. No gallops, murmurs, or rubs. Normal PMI, no JVD. No pulse deficits. Respiratory: Lungs have equal breath sounds bilaterally, clear to auscultation and percussion. No rales, rhonchi or wheezes noted. No increased work of breathing, no retractions or nasal flaring. Abdomen/GI: Soft, with normal bowel sounds. No distension or tympany. No guarding or rebound. No evidence of tenderness throughout. Back: No spinal tenderness. No costovertebral tenderness. Skin: Warm, dry with normal turgor. Normal color with no rashes, no lesions, and no evidence of cellulitis. MS/ Extremity: Pulses equal, no cyanosis. Neurovascular intact. Full, normal range of motion. Neuro: Awake and alert, GCS 15, oriented to person, place, time, and situation. Cranial nerves II-XII grossly intact. Motor strength 5/5 in all extremities. Sensory grossly intact. Psych: Awake, alert, with orientation to person, place and time. Behavior, mood, and affect are within normal limits Vital Signs: 04:36 BP 158 / 81; Pulse 69; Resp 14; Temp 97.2; Pulse Ox 95% ; Weight 71.67 kg; Height 5 ft. vc1 5 in. ; Pain 8/10; 04:36 Body Mass Index 26.29 (71.67 kg, 165.1 cm) vc1 04:36 Pain Scale: Adult vc1 MDM: 04:32 Patient medically screened. sp4 05:01 Differential Diagnosis Postoperative pain and tenderness. Data reviewed: vital signs, sp4 nurses notes, old medical records. ED course: Patient will be prescribed Tylenol No. 4 as needed pain. She states her surgeon only advised her to take Tylenol but will prescribe medicine for the next 3 days to manage pain. Will recommend contacting Dr. Burnette's office to schedule evaluation today or tomorrow for postoperative pain. Patient is stable for discharge from the emergency department. . Administered Medications: 05:16 Drug: [place] PO 10 mg-325 mg 1 tabs PO once Route: PO; vc1 05:17 Follow up: Response: Medication administered at discharge. vc1 05:16 Drug: Ondansetron PO 4 mg PO once Route: PO; vc1 05:17 Follow up: Response: Medication administered at discharge. vc1 Disposition Summary: 12/03/23 05:03 Discharge Ordered Notes: Location: Home sp4 Problem: new sp4 Symptoms: have improved sp4 Condition: Stable sp4 Diagnosis - Postoperative pain left neck, encounter for dressing, history of left carotid sp4 endarterectomy with postoperative pain Followup: sp4 - With: Private Physician - When: Today - Reason: Recheck today's complaints Discharge Instructions: - Discharge Summary Sheet sp4 - Carotid Endarterectomy, Care After sp4 Forms: - Patient Portal Instructions sp4 Prescriptions: - acetaminophen-codeine 300-60 mg Oral tablet - take 1 tablet ORAL route every 6 hours PRN pain; 20 tablet; Refills: 0, Product sp4 Selection Permitted Signatures: Radha Felder RN RN vc1 Kaz Morin MD MD sp4
[2023-12-03] MEDS ORDERED: HYDROCODONE/APAP 10/325 TAB ONE (05:09)
[2023-12-03] MEDS ORDERED: ONDANSETRON 4 MG (ODT) TAB ONE (05:09)
[2023-12-03 05:43] VITALS: BP 158/81; TEMP 97.2; O2SAT 95
== END 2023-12-03 05:21 | disposition home or self-care (01) ==
LOC: ER 04:22
DX: G89.18 Other acute postprocedural pain (principal); Z48.01 Encounter for change or removal of surgical wound dressing; Z98.890 Other specified postprocedural states; Z98.82 Breast implant status
CPT/HCPCS: 99283; Q0162